=== PATIENT | female | born 1970 | race Two or more races ===

== ENCOUNTER 2019-08-15 16:02 | Inpatient (IN) | payer OTHER ==
[~2019-08-15] VITALS: Ht 154.9 cm; Wt 58.7 kg
[2019-08-15 16:46] LABS: BASOPHILS # (AUTO) 0.03 x10^3/uL (0-0.1); BASOPHILS % (AUTO) 0 % (0-1); EOSINOPHILS % (AUTO) 2 % (1-7); LYMPHOCYTES # (AUTO) 1.41 x10^3/uL (1-3.4); LYMPHOCYTES % (AUTO) 22 % (22-44); MD NO; MEAN CORPUSCULAR HEMOGLOBIN 28.8 pg (27.0-34.8); MEAN CORPUSCULAR HGB CONC 32.6 g/dL (32.4-35.8); MEAN CORPUSCULAR VOLUME 88.4 fL (80-100); MEAN PLATELET VOLUME 9.9 fL (7.4-10.4); MONOCYTES % (AUTO) 10 % (2-9); NEUTROPHILS # (AUTO) 4.18 x10^3/uL (1.8-6.8); NEUTROPHILS % (AUTO) 66 % (42-75); PLATELET COUNT 220 x10^3/uL (130-400); RED BLOOD COUNT 5.25 x10^6/uL (3.82-5.3); RED CELL DISTRIBUTION WIDTH 13.7 % (9.6-15.2)
[2019-08-15 16:47] LABS: ALANINE AMINOTRANSFERASE 66 U/L (12-78); ALBUMIN 3.9 g/dL (3.4-5.0); ANION GAP 4 mmol/L (5-15); CALCIUM 8.7 mg/dL (8.5-10.1); CHLORIDE 107 mmol/L (98-107)
[2019-08-15 16:52] LABS: ALKALINE PHOSPHATASE 142 U/L (45-117); BILIRUBIN,TOTAL 0.8 mg/dL (0.2-1.0); CREATININE 0.93 mg/dL (0.55-1.02); TOTAL PROTEIN 8.1 g/dL (6.4-8.2)
--- NOTE | 2019-08-15 17:57 | NUR ---
TO NHAN FROM LOBBY
--- NOTE | 2019-08-15 18:11 | NUR ---
THIS IS A 49YO FEMALE THAT COMES IN TODAY W/ C/O ABD PAIN AND LOWER BACK PAIN. PT HAS HAD THIS PAIN FOR 1YR BUT THE PAIN IS WORSE TODAY. PT STATES THE PAIN IS EPIGASTRIC RADIATING TO HER FLANK. PT CONNECTED TO ALL MONITORING, VSS CALL LIGHT WITHIN REACH FAMILY AT BEDSIDE. URINE SAMPLE SENT TO LAB
[2019-08-15 18:27] LABS: MICROSCOPIC NOT IND
[2019-08-15 18:32] LABS: CULTURE INDICATED? NO
--- NOTE | 2019-08-15 18:50 | NUR ---
PT RESTING ON [facility] VARGAS AT BEDSIDE
--- NOTE | 2019-08-15 19:27 | NUR ---
PT BACK FROM [place]. REQUESTING PAIN MEDICATION, TO BE UPDATED
--- NOTE | 2019-08-15 19:29 | NUR ---
PT UP TO RESTROOM AT THIS TIME
[2019-08-15] MEDS ORDERED: ACETAMINOPHEN 500 MG TABLET PO ONE (19:30)
[2019-08-15] MEDS ORDERED: ACETAMINOPHEN 500 MG TABLET ONE (19:31)
--- NOTE | 2019-08-15 19:35 | NUR ---
ADDITIONAL ORDERS RECEIVED FOR 1G TYLENOL
--- NOTE | 2019-08-15 19:38 | NUR ---
ALL RESULTS BACK AT THIS TIME CHART UP FOR RECHECK
--- NOTE | 2019-08-15 20:12 | NUR ---
AT BEDSIDE TO REASSESS PT AND DISCUSS POC WITH PT AND FAMILY
[2019-08-15] MEDS ORDERED: MORPHINE SULFATE 4 MG/ML, 1ML ONE (20:21)
[2019-08-15] MEDS ORDERED: ONDANSETRON 2MG/ML, 2ML ONE (20:23)
[2019-08-15] MEDS ORDERED: ONDANSETRON 2MG/ML, 2ML IVPush ONE (20:30)
[2019-08-15] MEDS ORDERED: SODIUM CHLORIDE FLUSH 10ML SYR IVF ONE (20:30)
[2019-08-15] MEDS ORDERED: MORPHINE SULFATE 4 MG/ML, 1ML IVPush PRN (20:30)
[2019-08-15] MEDS ORDERED: OMEPRAZOLE (20:40)
--- NOTE | 2019-08-15 20:48 | NUR ---
REPORT GIVEN TO YUE RN, PT READY FOR TRANSPORT TO FLOOR
[2019-08-15 21:25] VITALS: BP 111/76
[2019-08-15] MEDS ORDERED: LABETALOL 5 MG/ML SYR. (IV ONLY) IVPush PRN (23:45)
[2019-08-16] MEDS ORDERED: LABETALOL 5MG/ML, 20ML IVPush PRN
[2019-08-16] MEDS ORDERED: HYDROmorphone 2 MG/ML, 1ML IVPush PRN
[2019-08-16] MEDS ORDERED: PROMETHAZINE 25 MG/ML, 1ML IM PRN
[2019-08-16] MEDS ORDERED: ACETAMINOPHEN 325 MG TABLET PO PRN
[2019-08-16] MEDS ORDERED: DIAZEPAM 2 MG TABLET PO PRN
[2019-08-16] MEDS ORDERED: ONDANSETRON 2MG/ML, 2ML IVPush PRN
[2019-08-16] MEDS: LACTATED RINGERS 1,000 ML IV SCH ×3 (00:06→23:50)
[2019-08-16 00:35] VITALS: BP 98/62
[2019-08-16 05:27] LABS: ALBUMIN 3.4 g/dL (3.4-5.0); CHLORIDE 110 mmol/L (98-107)
[2019-08-16 05:34] LABS: BASOPHILS # (AUTO) 0.03 x10^3/uL (0-0.1); BASOPHILS % (AUTO) 1 % (0-1); EOSINOPHILS # (AUTO) 0.05 x10^3/uL (0-0.4); EOSINOPHILS % (AUTO) 1 % (1-7); LYMPHOCYTES # (AUTO) 0.72 x10^3/uL (1-3.4); LYMPHOCYTES % (AUTO) 16 % (22-44); MD NO; MEAN CORPUSCULAR HEMOGLOBIN 29.6 pg (27.0-34.8); MEAN CORPUSCULAR HGB CONC 33.3 g/dL (32.4-35.8); MEAN PLATELET VOLUME 10.6 fL (7.4-10.4); MONOCYTES # (AUTO) 0.43 x10^3/uL (0.2-0.8); MONOCYTES % (AUTO) 9 % (2-9); NEUTROPHILS # (AUTO) 3.28 x10^3/uL (1.8-6.8); NEUTROPHILS % (AUTO) 73 % (42-75); PLATELET COUNT 184 x10^3/uL (130-400); RED BLOOD COUNT 4.67 x10^6/uL (3.82-5.3); RED CELL DISTRIBUTION WIDTH 13.9 % (9.6-15.2)
[2019-08-16 05:38] LABS: ALANINE AMINOTRANSFERASE 753 U/L (12-78); ALKALINE PHOSPHATASE 212 U/L (45-117); ANION GAP 7 mmol/L (5-15); BILIRUBIN,TOTAL 2.9 mg/dL (0.2-1.0); CALCIUM 8.1 mg/dL (8.5-10.1); CREATININE 0.85 mg/dL (0.55-1.02); TOTAL PROTEIN 6.7 g/dL (6.4-8.2)
[2019-08-16 06:40] VITALS: BP 109/68
[2019-08-16] MEDS: PANTOPRAZOLE 40 MG IV IVPush SCH (07:51)
[2019-08-16 12:28] VITALS: BP 102/65
[2019-08-16] MEDS: KETOROLAC 30 MG/1 ML IV PRN (18:35)
[2019-08-16 19:16] VITALS: BP 113/77
[2019-08-16 20:13] LABS: ALANINE AMINOTRANSFERASE 928 U/L (12-78); ALBUMIN 3.6 g/dL (3.4-5.0); ANION GAP 7 mmol/L (5-15); CALCIUM 8.3 mg/dL (8.5-10.1); CHLORIDE 108 mmol/L (98-107); CREATININE 0.96 mg/dL (0.55-1.02)
[2019-08-16 20:15] LABS: ALKALINE PHOSPHATASE 288 U/L (45-117); TOTAL PROTEIN 7.2 g/dL (6.4-8.2)
[2019-08-17 01:56] VITALS: BP 98/65
[2019-08-17 05:34] LABS: BASOPHILS # (AUTO) 0.02 x10^3/uL (0-0.1); BASOPHILS % (AUTO) 0 % (0-1); EOSINOPHILS # (AUTO) 0.16 x10^3/uL (0-0.4); EOSINOPHILS % (AUTO) 3 % (1-7); LYMPHOCYTES # (AUTO) 0.99 x10^3/uL (1-3.4); LYMPHOCYTES % (AUTO) 20 % (22-44); MD NO; MEAN CORPUSCULAR HEMOGLOBIN 29.1 pg (27.0-34.8); MEAN CORPUSCULAR HGB CONC 32.5 g/dL (32.4-35.8); MEAN CORPUSCULAR VOLUME 89.8 fL (80-100); MEAN PLATELET VOLUME 10.4 fL (7.4-10.4); MONOCYTES # (AUTO) 0.45 x10^3/uL (0.2-0.8); MONOCYTES % (AUTO) 9 % (2-9); NEUTROPHILS # (AUTO) 3.38 x10^3/uL (1.8-6.8); NEUTROPHILS % (AUTO) 68 % (42-75); PLATELET COUNT 162 x10^3/uL (130-400); RED CELL DISTRIBUTION WIDTH 14.3 % (9.6-15.2)
[2019-08-17 05:35] LABS: CHLORIDE 109 mmol/L (98-107)
[2019-08-17 05:41] LABS: ALANINE AMINOTRANSFERASE 661 U/L (12-78); ALKALINE PHOSPHATASE 263 U/L (45-117); ANION GAP 7 mmol/L (5-15); BILIRUBIN,TOTAL 2.6 mg/dL (0.2-1.0); CALCIUM 8.2 mg/dL (8.5-10.1); CREATININE 0.84 mg/dL (0.55-1.02); TOTAL PROTEIN 6.3 g/dL (6.4-8.2)
[2019-08-17 06:34] VITALS: BP 111/73
[2019-08-17] MEDS: PANTOPRAZOLE 40 MG IV IVPush SCH (07:35)
[2019-08-17] MEDS ORDERED: HYDROmorphone 1 MG/ML, 1ML INJ IV PRN (12:00)
[2019-08-17] MEDS ORDERED: hydrALAzine 20 MG/ML, 1ML IV PRN (12:00)
[2019-08-17] MEDS ORDERED: MEPERIDINE/PF 25MG/0.5ML IVPush PRN (12:00)
[2019-08-17] MEDS ORDERED: LABETALOL 5MG/ML, 20ML IV PRN (12:00)
[2019-08-17] MEDS ORDERED: PROMETHAZINE 25 MG/ML, 1ML IV PRN (12:00)
[2019-08-17] MEDS ORDERED: OXYcodone 5 MG/5 ML ORAL.SOL UDC PO PRN (12:00)
[2019-08-17] MEDS ORDERED: METOCLOPRAMIDE 5 MG/ML, 2ML IV PRN (12:00)
[2019-08-17] MEDS ORDERED: ONDANSETRON 2MG/ML, 2ML IVPush PRN (12:00)
[2019-08-17] MEDS ORDERED: KETOROLAC 30 MG/1 ML IV PRN (12:00)
[2019-08-17] MEDS ORDERED: FENTANYL PF 100 MCG/2ML IV PRN (12:00)
[2019-08-17] MEDS ORDERED: ALBUTEROL SULFATE 2.5 MG/3 ML NPPB PRN (12:00)
[2019-08-17] MEDS: LACTATED RINGERS 1,000 ML IV SCH (13:59)
[2019-08-17 14:01] VITALS: BP 114/74
[2019-08-17] MEDS: KETOROLAC 30 MG/1 ML IV PRN (14:07)
[2019-08-17 19:28] VITALS: BP 110/72
[2019-08-18] MEDS: LACTATED RINGERS 1,000 ML IV SCH ×2 (00:03→09:54)
[2019-08-18 01:49] VITALS: BP 105/69
[2019-08-18 05:23] LABS: BASOPHILS # (AUTO) 0.03 x10^3/uL (0-0.1); BASOPHILS % (AUTO) 1 % (0-1); EOSINOPHILS % (AUTO) 2 % (1-7); LYMPHOCYTES # (AUTO) 1.23 x10^3/uL (1-3.4); LYMPHOCYTES % (AUTO) 21 % (22-44); MD NO; MEAN CORPUSCULAR HEMOGLOBIN 29.1 pg (27.0-34.8); MEAN CORPUSCULAR HGB CONC 32.6 g/dL (32.4-35.8); MEAN CORPUSCULAR VOLUME 89.1 fL (80-100); MEAN PLATELET VOLUME 10.1 fL (7.4-10.4); MONOCYTES # (AUTO) 0.59 x10^3/uL (0.2-0.8); MONOCYTES % (AUTO) 10 % (2-9); NEUTROPHILS # (AUTO) 3.96 x10^3/uL (1.8-6.8); NEUTROPHILS % (AUTO) 67 % (42-75); PLATELET COUNT 177 x10^3/uL (130-400); RED BLOOD COUNT 4.31 x10^6/uL (3.82-5.3); RED CELL DISTRIBUTION WIDTH 14.3 % (9.6-15.2)
[2019-08-18 05:34] LABS: ALBUMIN 2.8 g/dL (3.4-5.0)
[2019-08-18 05:43] LABS: BILIRUBIN, DIRECT 0.6 mg/dL (0.1-0.2); BILIRUBIN,INDIRECT 0.9 mg/dL (0.0-2.0); BILIRUBIN,TOTAL 1.5 mg/dL (0.2-1.0); TOTAL PROTEIN 5.9 g/dL (6.4-8.2)
[2019-08-18 07:25] VITALS: BP 104/68
[2019-08-18] MEDS: PANTOPRAZOLE 40 MG IV IVPush SCH (08:17)
[2019-08-18] MEDS ORDERED: EPINEPHRINE 1 MG/ML, 1ML ONE (18:02)
[2019-08-18] MEDS ORDERED: BUPIVACAINE/PF 0.5% ONE (18:02)
[2019-08-18] MEDS ORDERED: FENTANYL PF 250 MCG/5ML ONE (18:04)
[2019-08-18] MEDS ORDERED: MIDAZOLAM 1 MG/ML, 2ML ONE (18:14)
[2019-08-18] MEDS ORDERED: CEFOTETAN 2 GM ONE (18:18)
[2019-08-18] MEDS ORDERED: KETOROLAC 30 MG/1 ML ONE (18:46)
[2019-08-18] MEDS ORDERED: ONDANSETRON 2MG/ML, 2ML ONE (19:16)
[2019-08-18] MEDS ORDERED: ROCURONIUM 10MG/ML,5ML ONE (19:16)
[2019-08-18] MEDS ORDERED: DEXAMETHASONE 4 MG/ML, 1ML ONE (19:16)
[2019-08-18] MEDS ORDERED: PROPOFOL 10 MG/ML, 20ML ONE (19:16)
[2019-08-18] MEDS ORDERED: CEFAZOLIN 1,000 MG ONE (19:16)
[2019-08-18] MEDS ORDERED: GLYCOPYRROLATE 0.2MG/1ML, 5ML ONE (19:16)
[2019-08-18] MEDS ORDERED: SUCCINYLCHOLINE 20 MG/ML, 10ML ONE (19:16)
[2019-08-18] MEDS ORDERED: NEOSTIGMINE 1 MG/ML, 10ML ONE (19:16)
[2019-08-18] MEDS ORDERED: OXYcodone 5 MG/5 ML ORAL.SOL UDC ONE (19:47)
[2019-08-18] MEDS ORDERED: FENTANYL PF 100 MCG/2ML ONE (19:47)
[2019-08-18] MEDS ORDERED: FENTANYL PF 100 MCG/2ML IV PRN (20:00)
[2019-08-18] MEDS ORDERED: LABETALOL 5MG/ML, 20ML IV PRN (20:00)
[2019-08-18] MEDS ORDERED: OXYcodone 5 MG/5 ML ORAL.SOL UDC PO PRN (20:00)
[2019-08-18] MEDS ORDERED: HYDROmorphone 2 MG/ML, 1ML IVPush PRN (20:00)
[2019-08-18] MEDS ORDERED: PROMETHAZINE 25 MG/ML, 1ML IV PRN (20:00)
[2019-08-18] MEDS ORDERED: HALOPERIDOL 5 MG/ML IV PRN (20:00)
[2019-08-18] MEDS ORDERED: MEPERIDINE/PF 25MG/ML,1ML IVPush PRN (20:00)
[2019-08-18] MEDS ORDERED: hydrALAzine 20 MG/ML, 1ML IV PRN (20:00)
[2019-08-18 20:30] VITALS: BP 113/73
[2019-08-18] MEDS ORDERED: MORPHINE SULFATE 4 MG/ML, 1ML IV PRN (23:30)
[2019-08-18] MEDS ORDERED: HYDROcodone/APAP 5/325 TABLET PO PRN (23:30)
[2019-08-19 00:02] VITALS: BP 105/68
[2019-08-19] MEDS: D5%-0.45NACL+KCL 20MEQ 1,000 ML IV SCH ×2 (00:11→09:30)
[2019-08-19 05:00] VITALS: BP 99/61
[2019-08-19 05:13] LABS: MEAN CORPUSCULAR HEMOGLOBIN 29.5 pg (27.0-34.8); MEAN CORPUSCULAR HGB CONC 32.8 g/dL (32.4-35.8); MEAN CORPUSCULAR VOLUME 89.9 fL (80-100); MEAN PLATELET VOLUME 10.4 fL (7.4-10.4); PLATELET COUNT 172 x10^3/uL (130-400); RED BLOOD COUNT 4.41 x10^6/uL (3.82-5.3); RED CELL DISTRIBUTION WIDTH 14.2 % (9.6-15.2)
[2019-08-19 05:20] LABS: ALANINE AMINOTRANSFERASE 332 U/L (12-78); ANION GAP 6 mmol/L (5-15); BILIRUBIN, DIRECT 0.5 mg/dL (0.1-0.2); CALCIUM 8.2 mg/dL (8.5-10.1); CHLORIDE 106 mmol/L (98-107); CREATININE 0.96 mg/dL (0.55-1.02)
[2019-08-19 05:22] LABS: ALKALINE PHOSPHATASE 221 U/L (45-117); BILIRUBIN,TOTAL 0.7 mg/dL (0.2-1.0); TOTAL PROTEIN 6.3 g/dL (6.4-8.2)
[2019-08-19 05:57] LABS: BASOPHILS % (AUTO) 0 % (0-1); EOSINOPHILS % (AUTO) 0 % (1-7); LYMPHOCYTES # (AUTO) 0.45 x10^3/uL (1-3.4); LYMPHOCYTES % (AUTO) 7 % (22-44); MD SCAN; MONOCYTES % (AUTO) 5 % (2-9); NEUTROPHILS # (AUTO) 5.59 x10^3/uL (1.8-6.8); NEUTROPHILS % (AUTO) 88 % (42-75)
[2019-08-19] MEDS: PANTOPRAZOLE 40 MG IV IVPush SCH (08:02)
[2019-08-19 08:46] VITALS: BP 100/65
[2019-08-19] MEDS ORDERED: FLU VAC QS 19-20(4YR UP)CEL/PF 0.5 ML IM-VACC ONE (11:30)
[2019-08-19] MEDS ORDERED: DOCU-131 PO (12:11)
[2019-08-19] MEDS ORDERED: ONDA4TAB13 PO (12:12)
[2019-08-19] MEDS ORDERED: HYDR-3240 PO (12:13)
[2019-08-19 14:04] VITALS: BP 102/66
[2019-08-27] MEDS ORDERED: SUCCINYLCHOLINE 20 MG/ML, 10ML ONE (11:37)
[2019-08-27] MEDS ORDERED: ONDANSETRON 2MG/ML, 2ML ONE (11:37)
[2019-08-27] MEDS ORDERED: PROPOFOL 10 MG/ML, 20ML ONE (11:37)
== END 2019-08-19 14:25 | disposition home or self-care (01) | DRG 419 ==
LOC: ED 20:00 → EDIP 20:14 → 4NE 21:30 → DCLOUNGE 08-19 14:11
PROVIDERS: ADMIT Family Medicine; ATTEND Hospitalist
PROC: BF131ZZ Fluoroscopy of Gallbladder and Bile Ducts using Low Osmolar Contrast (ICD-10-PCS; 2019-08-17)
PROC: 0FC88ZZ Extirpation of Matter from Cystic Duct, Via Natural or Artificial Opening Endoscopic (ICD-10-PCS; 2019-08-17)
PROC: 0F798DZ Dilation of Common Bile Duct with Intraluminal Device, Via Natural or Artificial Opening Endoscopic (ICD-10-PCS; principal; 2019-08-17 11:30)
PROC: 0FT44ZZ Resection of Gallbladder, Percutaneous Endoscopic Approach (ICD-10-PCS; 2019-08-18)
DX: K80.61 Calculus of gallbladder and bile duct with cholecystitis, unspecified, with obstruction (principal); K21.9 Gastro-esophageal reflux disease without esophagitis; Z82.49 Family history of ischemic heart disease and other diseases of the circulatory system
CPT/HCPCS: 36415; 74328; J3490; S0020; 76700; 80053; 80076; 81003; 82248; 83690; 84703; 85025; 88304; 90674; G0378; J0171; J0690; J1100; J1885; J2250; J2405; J2704; J2710; J3010; C1769; C1894; C2625; C9113; J0330; J2270; J3480; J7120

== ENCOUNTER 2019-09-23 09:07 | Outpatient (CLI) | payer SELFPAY ==
[~2019-09-23 09:07] MED LIST: DOCU-131 PO; HYDR-3240 PO; OMEPRAZOLE; ONDA4TAB13 PO
[2019-09-23] MEDS ORDERED: None per pt (09:44)
== END 2019-09-23 23:59 | disposition home or self-care (01) ==
LOC: STAR 09:07
PROVIDERS: ATTEND Internal Medicine
DX: Z02.9 Encounter for administrative examinations, unspecified (principal)

== ENCOUNTER 2019-09-28 05:27 | Day surgery (SDC) | payer OTHER ==
[~2019-09-28] VITALS: Ht 154.9 cm; Wt 60.8 kg
[~2019-09-28 05:27] MED LIST changes: +None per pt
[2019-09-28] MEDS ORDERED: LACTATED RINGERS 1,000 ML IV SCH (06:09)
[2019-09-28 06:11] VITALS: BP 109/67
[2019-09-28 06:20] LABS: HCG UR SG 1.007 (1.003-1.030)
[2019-09-28] MEDS ORDERED: LIDOCAINE-MPF 1%, 2ML INFIL ONE (06:30)
[2019-09-28] MEDS ORDERED: FENTANYL PF 100 MCG/2ML ONE ×3 (07:27→09:50)
[2019-09-28] MEDS ORDERED: MEPERIDINE/PF 25MG/ML,1ML IVPush PRN (07:30)
[2019-09-28] MEDS ORDERED: LABETALOL 5MG/ML, 20ML IV PRN (07:30)
[2019-09-28] MEDS ORDERED: PROMETHAZINE 25 MG/ML, 1ML IV PRN (07:30)
[2019-09-28] MEDS ORDERED: hydrALAzine 20 MG/ML, 1ML IV PRN (07:30)
[2019-09-28] MEDS ORDERED: HALOPERIDOL 5 MG/ML IV PRN (07:30)
[2019-09-28] MEDS ORDERED: OXYcodone 5 MG/5 ML ORAL.SOL UDC PO PRN (07:30)
[2019-09-28] MEDS ORDERED: HYDROmorphone 2 MG/ML, 1ML IVPush PRN (07:30)
[2019-09-28] MEDS ORDERED: SUCCINYLCHOLINE 20 MG/ML, 10ML ONE (07:45)
[2019-09-28] MEDS ORDERED: ROCURONIUM 10 MG/ML,10ML ONE (07:45)
[2019-09-28] MEDS ORDERED: PROPOFOL 10 MG/ML, 20ML ONE (08:58)
[2019-09-28] MEDS ORDERED: CEFAZOLIN 1,000 MG ONE (08:58)
[2019-09-28] MEDS ORDERED: ONDANSETRON 2MG/ML, 2ML ONE (08:58)
[2019-09-28] MEDS ORDERED: DEXAMETHASONE 4 MG/ML, 1ML ONE (08:58)
[2019-09-28] MEDS ORDERED: INDOMETHACIN 50 MG SUPP.RECT PR ONE (09:30)
[2019-09-28] MEDS ORDERED: INDOMETHACIN 50 MG SUPP.RECT ONE (09:32)
[2019-09-28] MEDS ORDERED: OXYcodone 5 MG/5 ML ORAL.SOL UDC ONE ×2 (09:50→09:55)
[2019-09-28] MEDS: FENTANYL PF 100 MCG/2ML IV PRN ×2 (09:51→09:59)
== END 2019-09-28 15:55 | disposition home or self-care (01) ==
LOC: OUT 05:27
PROVIDERS: ATTEND Internal Medicine
DX: K80.50 Calculus of bile duct without cholangitis or cholecystitis without obstruction (principal)
CPT/HCPCS: 43264; 43276; 74328; 81025; C1769; C1894; C2625; J0330; J1100; J2405; J2704; J3010; J7120; J0690

== ENCOUNTER 2019-10-21 08:01 | Outpatient (CLI) | payer OTHER ==
[2019-10-21] MEDS ORDERED: [UNRECOGNIZED DRUG - REMARK] (09:35)
== END 2019-10-21 23:59 | disposition home or self-care (01) ==
LOC: STAR 08:01
PROVIDERS: ATTEND Internal Medicine
DX: Z02.9 Encounter for administrative examinations, unspecified (principal)

== ENCOUNTER 2019-10-26 05:47 | Day surgery (SDC) | payer OTHER ==
[~2019-10-26] VITALS: Ht 154.9 cm; Wt 62.6 kg
[~2019-10-26 05:47] MED LIST changes: +[UNRECOGNIZED DRUG - REMARK]
[2019-10-26] MEDS ORDERED: LACTATED RINGERS 1,000 ML IV SCH (06:41)
[2019-10-26 06:45] VITALS: BP 111/74
[2019-10-26] MEDS ORDERED: LIDOCAINE-MPF 1%, 2ML ONE (06:48)
[2019-10-26] MEDS ORDERED: LIDOCAINE-MPF 1%, 2ML INFIL ONE (07:00)
[2019-10-26 07:16] LABS: HCG UR SG 1.012 (1.003-1.030)
[2019-10-26] MEDS ORDERED: MIDAZOLAM 1 MG/ML, 2ML ONE (11:15)
[2019-10-26] MEDS ORDERED: FENTANYL PF 100 MCG/2ML ONE ×2 (11:16→11:51)
[2019-10-26] MEDS ORDERED: ONDANSETRON 2MG/ML, 2ML ONE (11:33)
[2019-10-26] MEDS ORDERED: SUGAMMADEX 200 MG/2 ML IVPush ONE (11:33)
[2019-10-26] MEDS ORDERED: DEXAMETHASONE 4 MG/ML, 1ML ONE (11:33)
[2019-10-26] MEDS ORDERED: CEFAZOLIN 1,000 MG ONE (11:33)
[2019-10-26] MEDS ORDERED: ROCURONIUM 10 MG/ML,10ML ONE (11:33)
[2019-10-26] MEDS ORDERED: PROPOFOL 10 MG/ML, 20ML ONE (11:33)
[2019-10-26] MEDS ORDERED: OMNIPAQUE 350 MG/ML, 50 ML BOTTLE ONE (12:54)
[2019-10-26] MEDS ORDERED: MEPERIDINE/PF 25MG/ML,1ML IVPush PRN (13:00)
[2019-10-26] MEDS ORDERED: HYDROmorphone 2 MG/ML, 1ML IVPush PRN (13:00)
[2019-10-26] MEDS ORDERED: FENTANYL PF 100 MCG/2ML IV PRN (13:00)
[2019-10-26] MEDS ORDERED: hydrALAzine 20 MG/ML, 1ML IV PRN (13:00)
[2019-10-26] MEDS ORDERED: PROMETHAZINE 25 MG/ML, 1ML IV PRN (13:00)
[2019-10-26] MEDS ORDERED: OXYcodone 5 MG/5 ML ORAL.SOL UDC PO PRN (13:00)
== END 2019-10-26 16:15 | disposition home or self-care (01) ==
LOC: OUT 05:47
PROVIDERS: ATTEND Internal Medicine
DX: K80.50 Calculus of bile duct without cholangitis or cholecystitis without obstruction (principal); K83.2 Perforation of bile duct
CPT/HCPCS: 43264; 43273; 43275; 74328; 81025; C1769; J0690; J1100; J2250; J2405; J2704; J3010; J7120; Q9967